=== PATIENT | male | born 1995 | race Caucasian/White ===

== ENCOUNTER 2018-01-19 17:46 | Emergency (ER) | payer OTHER ==
[~2018-01-19] VITALS: Ht 177.8 cm; Wt 81.8 kg
[2018-01-19 18:00] VITALS: BP 176/87; TEMP 97.2
[2018-01-19] MEDS ORDERED: CILOXAN .3% EY2.5 ML OS (19:01)
[2018-01-19 19:20] VITALS: PULSE 68
== END 2018-01-19 19:20 | disposition home or self-care (01) ==
LOC: COL.ER 17:46
DX: S05.02XA Injury of conjunctiva and corneal abrasion without foreign body, left eye, initial encounter (principal); W22.8XXA Striking against or struck by other objects, initial encounter